=== PATIENT | female | born 1995 | race African-American/Black ===

== ENCOUNTER 2018-02-16 21:53 | Emergency (ER) | payer MEDICAID, OTHER, SELFPAY ==
[2018-02-17] MEDS: LIDOCAINE W/EPINEPHRINE 1% 20ML VIAL SC (01:38)
[2018-02-17] MEDS: HYDROmorphone HCL 1 MG/ML SYRINGE (J1170) IM (01:39)
[2018-02-17] MEDS: AUGMENTIN 875 MG TAB PO (02:28)
[2018-02-17] MEDS: NORCO 5/325MG TABLET (BULK FOR ED) PO (02:28)
== END 2018-02-17 02:41 | disposition home or self-care (01) ==
LOC: M ED 21:53
DX: L02.31 Cutaneous abscess of buttock (principal); F17.200 Nicotine dependence, unspecified, uncomplicated; Z91.030 Bee allergy status; Z91.010 Allergy to peanuts
CPT/HCPCS: J1170

== ENCOUNTER 2018-02-19 00:39 | Emergency (ER) | payer MEDICAID, SELFPAY | END 2018-02-19 02:59 | disposition left against medical advice (07) | LOC: M ED 00:39 | DX: Z53.21 Procedure and treatment not carried out due to patient leaving prior to being seen by health care provider (principal) ==

== ENCOUNTER 2018-02-19 03:12 | Emergency (ER) | payer MEDICAID, SELFPAY | END 2018-02-19 05:13 | disposition home or self-care (01) | LOC: M ED 03:12 | DX: Z48.00 Encounter for change or removal of nonsurgical wound dressing (principal); Z91.030 Bee allergy status; Z91.010 Allergy to peanuts; F17.200 Nicotine dependence, unspecified, uncomplicated; Z79.2 Long term (current) use of antibiotics | CPT/HCPCS: 99282 ==

== ENCOUNTER 2018-05-22 12:32 | Emergency (ER) | payer SELFPAY, OTHER, MEDICAID ==
[2018-05-22 14:17] LABS: KETONE, URINE AUTO RFX NEGATIVE (NEGATIVE); LEUKOCYTE ESTERASE UR AUTO RFX NEGATIVE (NEGATIVE); MUCUS, URINE RFX SMALL (NEGATIVE); NITRITE, URINE AUTO RFX NEGATIVE (NEGATIVE); RBC, URINE AUTO RFX 2 /HPF (0-3); SPECIFIC GRAVITY UR AUTO RFX 1.024 (1.002-1.035); SQUAM EPITHELIAL CELL UR AURFX 2 /HPF (0-6); WBC, URINE AUTO RFX 1 /HPF (0-3)
[2018-05-22 15:42] LABS: HCG, SERUM QUANTITATIVE 12140 MIU/ML
[2018-05-22 16:32] LABS: CHLAMYDIA DNA AMPLIFICATION POSITIVE (NEGATIVE); GC DNA AMPLIFICATION NEGATIVE (NEGATIVE)
== END 2018-05-22 16:37 | disposition home or self-care (01) ==
LOC: M ED 12:32
DX: O20.0 Threatened abortion (principal); O20.8 Other hemorrhage in early pregnancy; Z3A.01 Less than 8 weeks gestation of pregnancy; Z72.0 Tobacco use; Z91.030 Bee allergy status; Z91.010 Allergy to peanuts
CPT/HCPCS: 76801